=== PATIENT | female | born 1945 | race Caucasian/White ===

== ENCOUNTER 2019-09-29 15:05 | Inpatient (IN) | payer OTHER ==
[~2019-09-29] VITALS: Ht 154.9 cm; Wt 62.1 kg
[2019-10-08] MEDS ORDERED: CLARITIN10 M1 PO (13:48)
[2019-10-08] MEDS ORDERED: BIOTIN1000 MCG PO (13:48)
[2019-10-08] MEDS ORDERED: TELMISARTAN-HC1 EACH PO (13:49)
[2019-10-08] MEDS ORDERED: ADULT LOW DOSE81 M1 PO (13:49)
[2019-10-08] MEDS ORDERED: VITAMIN B-122500 MCG SL (13:49)
[2019-10-08] MEDS ORDERED: DIALYVITE 800-1 EACH PO (13:49)
[2019-10-08] MEDS ORDERED: ACID CONTROL150 MG PO (13:50)
[2019-10-08] MEDS ORDERED: MONTELUKAST SODI4 M1 PO (13:50)
[2019-10-08] MEDS ORDERED: SYMBICORT 16010.2 GM IH (13:50)
[2019-10-08] MEDS ORDERED: VERELAN120 MG PO (13:50)
[2019-10-08] MEDS ORDERED: LIPITOR20 MG PO (13:50)
[2019-10-08] MEDS ORDERED: SPIRIVA RESPIMAT4 G1 IH (13:51)
== END 2019-10-18 15:16 | disposition home or self-care (01) | DRG 330 ==
LOC: SURG 10-14 12:30 → O/R 10-15 05:15 → SURG 10-15 12:30
PROVIDERS: ADMIT Colon & Rectal Surgery
PROC: 0DJD8ZZ Inspection of Lower Intestinal Tract, Via Natural or Artificial Opening Endoscopic (ICD-10-PCS; 2019-10-15)
PROC: 3E0F7GC Introduction of Other Therapeutic Substance into Respiratory Tract, Via Natural or Artificial Opening (ICD-10-PCS; 2019-10-15)
PROC: 0DTN4ZZ Resection of Sigmoid Colon, Percutaneous Endoscopic Approach (ICD-10-PCS; principal; 2019-10-15 20:45)
DX: K57.20 Diverticulitis of large intestine with perforation and abscess without bleeding (principal); J45.21 Mild intermittent asthma with (acute) exacerbation; D62 Acute posthemorrhagic anemia; K63.89 Other specified diseases of intestine; I11.9 Hypertensive heart disease without heart failure